=== PATIENT | male | born 1970 | race Caucasian/White ===

== ENCOUNTER 2020-07-29 09:45 | Emergency (ER) | payer SELFPAY ==
[~2020-07-29] VITALS: Ht 190.5 cm; Wt 83.9 kg
--- NOTE | 2020-07-29 09:45 | NUR ---
PT BIB [facility]60 WALKING, LEFT HAND INJURY SUSTAINED AFTER HE GOT MAD AN HOUR AGO. PT IS AAOX4, NOT IN RESPIRATORY DISTRESS, V/S STABLE, KEPT RESTED AND COMFORTABLE. WILL CONTINUE TO MONITOR.
--- NOTE | 2020-07-29 09:52 | NUR ---
CALLED TELECOMMUNICATIONS CLERK
[2020-07-29] MEDS ORDERED: LORAZEPAM INJ 2 MG/ML VIAL IM ONE (10:00)
[2020-07-29] MEDS ORDERED: OLANZAPINE 10 MG VIAL IM ONE ×2 (10:00→10:02)
--- NOTE | 2020-07-29 10:00 | NUR ---
PT UNCOOPERATIVE AND UNABLE TO PROVIDE URINE SPECIMEN.
[2020-07-29] MEDS ORDERED: LORAZEPAM INJ 2 MG/ML VIAL ONE ×2 (10:02→10:03)
--- NOTE | 2020-07-29 10:10 | NUR ---
ATIVAN 1MG WASTED AND WITNESSED BY PRINCE MARIN RN.
--- NOTE | 2020-07-29 10:13 | NUR ---
ER PHLEB AT BEDSIDE FOR BLOOD DRAW.
[2020-07-29 10:23] LABS: BASOPHILS # (AUTO) 0.1 /CMM (0.0-0.2); BASOPHILS % (AUTO) 1.4 % (0.0-2.0); EOSINOPHILS % (AUTO) 2.3 % (0.0-6.0); HEMATOCRIT 42 % (39-51); HEMOGLOBIN 14.3 g/dL (13.5-17.5); LYMPHOCYTES # (AUTO) 0.8 /CMM (0.8-4.8); LYMPHOCYTES % (AUTO) 14.3 % (20.0-44.0); MEAN CORPUSCULAR HGB CONC 34 g/dl (31.0-36.0); MEAN CORPUSCULAR VOLUME 92 fL (80-96); MONOCYTES # (AUTO) 0.7 /CMM (0.1-1.30); MONOCYTES % (AUTO) 12.1 % (2.0-12.0); NEUTROPHILS % (AUTO) 69.9 % (43.0-81.0); PLATELET COUNT (AUTO) 368 /CMM (150-450); RED BLOOD CELL COUNT(AUTO) 4.51 MIL/uL (4.5-6.0); WHITE BLOOD COUNT (AUTO) 5.8 K/uL (4.3-11.0)
[2020-07-29 10:30] LABS: CALCIUM, SERUM 8.4 mg/dL (8.5-10.1); CARBON DIOXIDE 23 mmol/L (21-32); CHLORIDE 102 mmol/L (98-107); CREATININE 0.9 mg/dL (0.6-1.3); GLUCOSE 108 mg/dL (74-106); SODIUM SERUM 136 mmol/L (136-145); UREA NITROGEN, BLOOD 16 mg/dL (7-18)
[2020-07-29 10:36] LABS: ALANINE AMINOTRANSFERASE 44 U/L (12-78); ALBUMIN 3.5 g/dL (3.4-5.0); ALKALINE PHOSPHATASE 102 U/L (46-116); ASPARTATE AMINOTRANSFERASE 29 U/L (15-37); BILIRUBIN,DIRECT 0.1 mg/dL (0.0-0.2); BILIRUBIN,TOTAL 0.5 mg/dL (0.2-1.0); TOTAL PROTEIN, SERUM 7.1 g/dL (6.4-8.2)
[2020-07-29 10:37] LABS: ACETAMINOPHEN < 0 ug/ml (10-30); ALCOHOL, BLOOD < 3 mg/dL (0-0)
--- NOTE | 2020-07-29 10:40 | NUR ---
"Pediatric Speech Language Pathologist consult: food and nutrition services supervisor consult requested for homeless and substance use. Patient is a 49-year-old, male. SW met with patient at his bedside in the emergency department. Patient was alert and oriented x4. Patient presented disheveled. Per chart, patient was brought in by ambulance on 07/29/20 for a left-hand injury. Patient is currently homeless and stated that he has been homeless for the last two weeks. Patient stated that he currently has no source of income. SW asked patient about his history of substance use and patient reported methamphetamine and cannabis use, every three days. SW assessed patients history of mental illness and patient reported no history. Patient denied current suicidal or homicidal ideation. SW offered patient homeless and substance use resources to the patient. Patient accepted the resources and thanked SW stating that he will follow up with usp resources. Patient signed the homeless waiver and SW filed waiver in the patients chart. SW discussed discharge plans with the patient and patient stated that he will return to his prior living arrangement on the street. Patient stated that he can take public transportation. PLAN: Patient plans to return to prior living arrangement on the street. No further SS intervention at this time, however SW will remain available as needed. RESOURCES: Year-round shelters: [place] [address] [address] ; [facility] [address] [place] [address]; [place] [facility] [facility] [address] SPA 4 | [facility] [place] Provider: [facility] Address: [address], [address] # of Beds: 48 Population Served: [facility] Provider: First to Serve Address: [address] [facility], [address] # of Beds: 73 Population Served: [facility] 6 | [facility] Provider: [facility] Last Address: [address] [facility], [address] # of Beds: 63 Population Served: [facility] 3 | [facility] Provider: [place] Address: [address] [place] [address] # of Beds: 75 Population Served: [facility] SPA 8 | [facility] Provider: Eben RIGGINS Address: [address] [facility], [address] # of Beds: 80 Population Served: [facility] SPA 1 | [facility] Provider: Eben RIGGINS Address: [id number] [place] [address], [address] # of Beds: 85 Population Served: [facility] SPA 2 | [facility] Provider: Stephani diaz [facility] Address: Confidential (please call for location) # of Beds: 52 Population Served: [facility] S[facility] 4 | [facility] Provider: April Akins Address: [address] [place] [address] # of Beds: 49 Population Served: [facility] Provider: First To Serve Address: [address] [place] [address] # of Beds: 27 Population Served: [facility] Hygiene: [facility]: [address] [facility] ; [facility] [address] [facility] ; [facility] 4987 [facility] . Food Resources: [facility] [employer] at [facility]- [address] [facility]; Meet Each Need with [facility] ([facility]) [address] [facility]; [facility] [address]45 [facility]; [facility] 2394 [facility]. Mental Health resources provided: [facility] [address] [place] [address] ; [facility] [address] [facility] [address], [place] [address] ; [facility] [address] [place] [address] ; [facility] [place], [place] [id number] Healthcare Clinics: [facility] [address] [facility], [address] [place]. [place] ; [facility] [address] [facility] [address] [place] [address]; [facility] [address] [facility] [place] [phone] Counseling--Outpatient [facility] [address] [facility], [place] [address] (Specializes in in-depth psychotherapy for emotional distress: anxiety, depression, interpersonal conflicts, life transitions, childhood abuse) PSYCHIATRIC OUTPATIENT SERVICES [facility] Partial Hospitalization and Intensive Outpatient Program (Managed Care and Hope Only) [address] [facility] [address] [facility] Partial Hospitalization and Outpatient Program [address] [address] [facility]. [address] [place], [place] [id number] [facility] Partial Hospitalization and Outpatient Program [address] [facility]. [place], [place] [id number] [facility] [address] [facility]. [address] [place], [place] [id number] [facility] Partial Hospitalization and Outpatient Program [address] [place], [place] [phone] Substance use resources provided included: [facility] Substance Abuse Self-Helpline (SAS) ; [facility] [address] [facility] [address] ; [facility] [address] [facility] [address] ; [facility] [address] [facility] [address] ; [facility] [address] [facility] [phone] ; [facility] [address] [facility] [phone] ; [facility] [place]; [facility] [place]; [facility] [place]; Alcoholics Anonymous -SFV"
--- NOTE | 2020-07-29 11:05 | NUR ---
URINE SPECIMEN COLLECTED AND SENT TO LAB.
[2020-07-29 11:10] LABS: BILIRUBIN,URINE Negative (NEGATIVE); COLOR,URINE YELLOW (YELLOW); LEUKOCYTE ESTERASE ,URINE Negative (NEGATIVE); NITRITE, URINE Negative (NEGATIVE); PROTEIN,URINE Negative (NEGATIVE); UGLUCOSE Negative (NEGATIVE); UROBILINOGEN,URINE 0.2 EU/dL (0.2)
[2020-07-29 11:21] LABS: BACTERIA,URINE None seen /HPF (None Seen); RBC,URINE 0-2 /HPF (0-2); SQUAMOUS EPITHELIAL CELL,UR None Seen /HPF (None Seen); WBC,URINE 0-2 /HPF (0-3)
[2020-07-29] MEDS ORDERED: PIPERACILLIN /TAZOBACTAM 3.375 G in IV D5W 50 ML IV ONE (11:30)
[2020-07-29] MEDS ORDERED: METRONIDAZOLE 500MG/ NS 100ML 500 MG in PREMIX 1 EA IV SCH (11:30)
--- NOTE | 2020-07-29 11:53 | NUR ---
CALLED ART FOR EVAL [phone] NO ANSWER CALLED [phone]
--- NOTE | 2020-07-29 11:56 | NUR ---
[facility] AT [place] WILL BE HERE SOON HE CAN.
--- NOTE | 2020-07-29 12:10 | NUR ---
COLLINS HOLGUIN AT BEDSIDE FOR WOUND CLEANING AND SPLINT.
--- NOTE | 2020-07-29 17:05 | NUR ---
[facility] [phone] WILL BE HERE IN AN HOUR OR SO.
[2020-07-29] MEDS ORDERED: CEPH250C PO (20:19)
[2020-07-29] MEDS ORDERED: IBUP-1955 PO (20:20)
--- NOTE | 2020-07-29 20:25 | NUR ---
AT BEDSIDE WITH DR QUINTANILLA TO EXPLAIN HAND LACERATION CARE AND TENDON INJURY WELL FOLLOW UP WITH A HAND SURGEON. PT EXPRESSES UNDERSTANDING.
[2020-07-29] MEDS ORDERED: CEPHALEXIN MONOHYDRATE 500 MG CAPSULE PO ONE ×2 (20:27→20:30)
[2020-07-29 21:01] VITALS: BP 120/60
--- NOTE | 2020-07-29 21:01 | NUR ---
Patient discharged to home in stable condition. Written and verbal after care instructions given. Patient verbalizes understanding of instruction.
== END 2020-07-29 21:02 | disposition home or self-care (01) ==
LOC: ER 09:49
DX: S66.121A Laceration of flexor muscle, fascia and tendon of left index finger at wrist and hand level, initial encounter (principal); F10.10 Alcohol abuse, uncomplicated; R41.0 Disorientation, unspecified; R45.1 Restlessness and agitation; Y90.0 Blood alcohol level of less than 20 mg/100 ml; Z60.2 Problems related to living alone; X58.XXXA Exposure to other specified factors, initial encounter; Y93.89 Activity, other specified; Y92.89 Other specified places as the place of occurrence of the external cause; Y99.8 Other external cause status
CPT/HCPCS: 29130; 36415; 73130; 80048; 80076; 80143; 80307; 80320; 81001; 85025; 96372 ×2; 99284; A6403; J2060 ×2; J3490; A4216; G0480; J2543; J7060